=== PATIENT | female | born 1975 | race Two or more races ===

== ENCOUNTER 2022-02-12 15:40 | Inpatient (IN) | payer OTHER, MEDICAID ==
[~2022-02-12] VITALS: Ht 162.6 cm; Wt 118.9 kg
[2022-02-12] MEDS ORDERED: cloNIDine HCL 0.1 MG TAB PO ONE (16:15)
[2022-02-12] MEDS ORDERED: ASPirin 81 mg TAB PO ONE (16:15)
[2022-02-12 16:38] LABS: Urine Bacteria NONE SEEN /hpf (None Seen); Urine Blood 1+ /uL (Negative); Urine Specific Gravity 1.019 (1.001-1.035); Urine WBC 3 /hpf (0 - 5)
[2022-02-12 18:06] LABS: Hemoglobin 13.5 g/dL (12.2-16.2); Mean Corpuscular Hemoglobin 27.1 pg (28.0-32.0); Mean Corpuscular Volume 82.1 fL (80.0-100.0); Red Blood Cells 4.99 10^6/uL (4.0-5.20); Red Cell Distribution Width 14.9 % (11.8-14.3); White Blood Cell 10.3 10^3/uL (4.4-10.8)
[2022-02-12 18:07] LABS: Basophils % (manual) 0 (0.0-2.0); Blast Cells 0; Metamyelocytes % 0; Myelocytes % 0; Promyelocytes % 0; Reactive Lymphocytes 0
[2022-02-12 18:21] LABS: Albumin 3.6 g/dL (3.4-5.0); BUN/Creatinine Ratio 15.4; Calcium 8.9 mg/dL (8.5-10.1); Magnesium 2.4 mg/dL (1.6-2.6); Potassium 3.8 mmol/L (3.5-5.1)
[2022-02-12 18:24] LABS: Bilirubin, Total 0.3 mg/dL (0.2-1.0); Total Protein 6.8 g/dL (6.4-8.2)
[2022-02-12 18:26] LABS: Band Neutrophils % (manual) 8; Eosinophils % (manual) 12 (0-7); Lymphocytes % (manual) 24 (10.0-50.0); Monocytes % (manual) 3 (0-12)
[2022-02-12] MEDS ORDERED: HYDROcodone-ACET 5/325MG TAB PO PRN (22:00)
[2022-02-12] MEDS ORDERED: DOCUSATE SOD 100 MG CAP PO PRN (22:00)
[2022-02-12] MEDS ORDERED: ONDANSETRON HCL 4 MG/2 ML VIAL IV PRN (22:00)
[2022-02-12] MEDS ORDERED: MORPHINE SULFATE INJ 2 MG/ml SYRG IV PRN ×2 (22:00)
[2022-02-12] MEDS ORDERED: NITROGLYCERIN 0.4 MG SL TAB SL PRN (22:00)
[2022-02-12] MEDS ORDERED: ACETAMINOPHEN 325 MG TAB PO PRN (22:00)
[2022-02-12] MEDS: amLODIPine BESYLATE 5 MG TAB PO SCH ×2 (23:30→23:33)
[2022-02-12] MEDS: METOPROLOL TARTRATE 25 MG TAB PO SCH ×2 (23:31→23:33)
[2022-02-13] MEDS: METOPROLOL TARTRATE 25 MG TAB PO SCH ×2 (10:00→21:32)
[2022-02-13] MEDS: amLODIPine BESYLATE 5 MG TAB PO SCH (10:30)
[2022-02-13] MEDS ORDERED: guaiFENesin-DM 100/10mg/5ml SYR PO PRN (11:45)
[2022-02-13 22:00] VITALS: BP 164/96
[2022-02-14 06:57] LABS: Cholesterol 146 mg/dL (< 200)
[2022-02-14 07:00] LABS: HDL Cholesterol 22 mg/dL (40-59); LDL Cholesterol 58 mg/dL (< 100); Triglycerides 130 mg/dL (< 150)
[2022-02-14] MEDS ORDERED: ADENOSINE 63 MG in GIVE UN-DILUTED 0 ML IV ONE (07:45)
[2022-02-14 09:00] VITALS: BP 131/69
[2022-02-14] MEDS: ASPirin 81 mg TAB PO SCH (10:12)
[2022-02-14] MEDS: METOPROLOL TARTRATE 25 MG TAB PO SCH ×2 (10:14→21:16)
[2022-02-14] MEDS: amLODIPine BESYLATE 5 MG TAB PO SCH (10:15)
[2022-02-14] MEDS ORDERED: AMLO-496 PO (11:31)
[2022-02-14] MEDS ORDERED: METO25TA36 PO (11:31)
[2022-02-14 13:00] VITALS: BP 126/67
[2022-02-14 17:00] VITALS: BP 150/81
[2022-02-14 22:00] VITALS: BP 143/91
[2022-02-15 05:00] VITALS: BP 145/82
[2022-02-15] MEDS: ASPirin 81 mg TAB PO SCH (08:14)
[2022-02-15] MEDS: amLODIPine BESYLATE 5 MG TAB PO SCH (08:15)
[2022-02-15] MEDS: METOPROLOL TARTRATE 25 MG TAB PO SCH ×2 (08:15→22:04)
[2022-02-15 08:45] VITALS: BP 145/73
[2022-02-15 13:00] VITALS: BP 144/73
[2022-02-15 17:03] VITALS: BP 133/67
[2022-02-16] VITALS (7 sets, daily range): BP systolic 138–156; BP diastolic 75–89
[2022-02-16 08:19] LABS: BUN/Creatinine Ratio 13.6; Calcium 8.7 mg/dL (8.5-10.1); Potassium 3.9 mmol/L (3.5-5.1)
[2022-02-16 08:22] LABS: Basophils # (auto) 0 10 ^3/uL (0-0.2); Basophils % (auto) 0.4 % (0.0-2.0); Eosinophils # (auto) 0.4 10 ^3/uL (0-0.8); Hematocrit 40.5 % (36.0-46.0); Hemoglobin 13.3 g/dL (12.2-16.2); Lymphocytes # (auto) 2.3 10 ^3/uL (0.4-5.4); Lymphocytes % (auto) 22.4 % (10.0-50.0); Mean Corpuscular Hemoglobin 27.1 pg (28.0-32.0); Mean Corpuscular Hgb Conc. 32.9 g/dL (32.0-36.0); Mean Corpuscular Volume 82.4 fL (80.0-100.0); Monocytes # (auto) 0.7 10 ^3/uL (0-1.3); Monocytes % (auto) 6.8 % (0.0-12.0); Neutrophils # (auto) 6.9 10 ^3/uL (1.6-8.6); Neutrophils % (auto) 66.4 % (37.0-80.0); Red Blood Cells 4.92 10^6/uL (4.0-5.20); Red Cell Distribution Width 14.8 % (11.8-14.3); White Blood Cell 10.4 10^3/uL (4.4-10.8)
[2022-02-16 08:28] LABS: INR 0.97 (0.9-1.15); Partial Thromboplastin Time 27.8 sec (24.6-33.4)
[2022-02-16] MEDS: ASPirin 81 mg TAB PO SCH (08:52)
[2022-02-16] MEDS: amLODIPine BESYLATE 5 MG TAB PO SCH (08:53)
[2022-02-16] MEDS: METOPROLOL TARTRATE 25 MG TAB PO SCH (08:53)
[2022-02-16] MEDS ORDERED: IODIXANOL 320MG/ML 100ML BTL IV ONE (10:46)
[2022-02-16] MEDS ORDERED: LIDOCAINE 2%HCL (LOCAL ANESTH.) INJ 10ml MDV ONE (10:46)
[2022-02-16] MEDS ORDERED: fentaNYL CITRATE 100 MCG/2 ML VL ONE (10:48)
[2022-02-16] MEDS ORDERED: VERAPAMIL 2.5MG/ML INJ 2ML VIAL IV ONE (10:48)
[2022-02-16] MEDS ORDERED: ANGIOMAX 250 MG VIAL IV ONE (10:48)
[2022-02-16] MEDS ORDERED: HEPARIN SODIUM (PORCINE) 5000 UNITS/ML 1ML VIAL ONE (10:48)
[2022-02-16] MEDS ORDERED: MIDAZOLAM HCL 2MG/2ML 2ml VIAL (1mg/ml) ONE (10:48)
[2022-02-16] MEDS ORDERED: SODIUM CHL 0.9% 0 ML ONE (10:49)
== END 2022-02-16 16:15 | disposition home or self-care (01) | DRG 281 ==
LOC: ER 15:40 → TELE 22:02 → TELE-WESTW 02-13 22:29
PROVIDERS: ADMIT Internal Medicine; ATTEND Nurse Practitioner Acute Care
PROC: 4A023N7 Measurement of Cardiac Sampling and Pressure, Left Heart, Percutaneous Approach (ICD-10-PCS; principal; 2022-02-16)
PROC: B211YZZ Fluoroscopy of Multiple Coronary Arteries using Other Contrast (ICD-10-PCS; 2022-02-16)
PROC: B215YZZ Fluoroscopy of Left Heart using Other Contrast (ICD-10-PCS; 2022-02-16)
DX: I16.0 Hypertensive urgency (principal); I21.A1 Myocardial infarction type 2; N39.0 Urinary tract infection, site not specified; Z68.42 Body mass index [BMI] 45.0-49.9, adult; I25.10 Atherosclerotic heart disease of native coronary artery without angina pectoris; Z20.822 Contact with and (suspected) exposure to COVID-19; E66.9 Obesity, unspecified; I10 Essential (primary) hypertension; Z79.899 Other long term (current) drug therapy; Z91.14 Patient's other noncompliance with medication regimen; Z79.82 Long term (current) use of aspirin; Z80.9 Family history of malignant neoplasm, unspecified; Z82.49 Family history of ischemic heart disease and other diseases of the circulatory system; Z83.3 Family history of diabetes mellitus; Z90.49 Acquired absence of other specified parts of digestive tract
CPT/HCPCS: 36415; 71046; 78452; 80048; 80053; 80061; 81001; 83036; 83735; 84484; 84702; 85007; 85025; 85027; 85610; 85730; 86850; 86900; 86901; 87426; 93005; 93017; 93306; 93458; 99152; G0378; J0153; J2001; J2250; Q9967

== ENCOUNTER 2022-02-23 11:27 | Emergency (ER) | payer OTHER, MEDICAID ==
[~2022-02-23] VITALS: Ht 162.6 cm; Wt 12.2 kg
[~2022-02-23 11:27] MED LIST: AMLO-496 PO; METO25TA36 PO
[2022-02-23 13:03] VITALS: BP 143/80
[2022-02-23 15:45] LABS: Basophils # (auto) 0.1 10 ^3/uL (0-0.2); Basophils % (auto) 0.7 % (0.0-2.0); Eosinophils # (auto) 0.4 10 ^3/uL (0-0.8); Eosinophils % (auto) 3.4 % (0.0-7.0); Hematocrit 42.5 % (36.0-46.0); Lymphocytes # (auto) 2.4 10 ^3/uL (0.4-5.4); Lymphocytes % (auto) 21.3 % (10.0-50.0); Mean Corpuscular Hemoglobin 26.9 pg (28.0-32.0); Mean Corpuscular Volume 81.6 fL (80.0-100.0); Monocytes # (auto) 0.8 10 ^3/uL (0-1.3); Monocytes % (auto) 7.1 % (0.0-12.0); Neutrophils # (auto) 7.7 10 ^3/uL (1.6-8.6); Neutrophils % (auto) 67.5 % (37.0-80.0); Nucleated Red Blood Cells % 0.3 %; Red Blood Cells 5.21 10^6/uL (4.0-5.20); Red Cell Distribution Width 14.9 % (11.8-14.3); White Blood Cell 11.4 10^3/uL (4.4-10.8)
[2022-02-23 15:57] LABS: INR 0.98 (0.9-1.15)
[2022-02-23 16:01] LABS: Potassium 3.7 mmol/L (3.5-5.1)
[2022-02-23 16:21] LABS: Albumin 3.8 g/dL (3.4-5.0); BUN/Creatinine Ratio 16.9; Bilirubin, Total 0.6 mg/dL (0.2-1.0); Calcium 8.8 mg/dL (8.5-10.1); Total Protein 7.4 g/dL (6.4-8.2)
== END 2022-02-23 18:08 | disposition home or self-care (01) ==
LOC: ER 11:27
DX: I70.90 Unspecified atherosclerosis (principal); I10 Essential (primary) hypertension; Z90.49 Acquired absence of other specified parts of digestive tract; Z98.890 Other specified postprocedural states; Z20.822 Contact with and (suspected) exposure to COVID-19
CPT/HCPCS: 36415; 80053; 85025; 85610; 87426; 93971

== ENCOUNTER 2023-08-31 12:40 | Inpatient (IN) | payer OTHER, MEDICAID ==
[~2023-08-31] VITALS: Ht 162.6 cm; Wt 122.9 kg
[~2023-08-31 12:40] MED LIST changes: -AMLO-496 PO; +AMLO1TAB23 PO
[2023-08-31 13:21] LABS: Urine Bacteria None Seen /hpf (None Seen)
[2023-08-31 13:29] LABS: Urine Blood TRACE /uL (Negative); Urine Clarity Turbid (Clear); Urine Color Yellow (Yellow); Urine Mucus FEW (None Seen); Urine Protein, UAD 1+ (Negative); Urine Specific Gravity 1.024 (1.001-1.035); Urine Urobilinogen Normal (Negative); Urine WBC 2 /hpf (0 - 5); Urine pH 5.5 (5.0-9.0)
[2023-08-31] MEDS: SODIUM CHLORIDE 0.9% 1,000 ML IV ONE (13:43)
[2023-08-31 13:47] VITALS: PULSE 66; RESP 14; O2SAT 98
[2023-08-31 13:49] LABS: Basophils # (auto) 0.1 10 ^3/uL (0-0.2); Basophils % (auto) 0.6 % (0.0-2.0); Eosinophils # (auto) 0.3 10 ^3/uL (0-0.8); Eosinophils % (auto) 2.4 % (0.0-7.0); Hemoglobin 13.9 g/dL (12.2-16.2); Lymphocytes # (auto) 2.1 10 ^3/uL (0.4-5.4); Lymphocytes % (auto) 16.1 % (10.0-50.0); Mean Corpuscular Hgb Conc. 33.8 g/dL (32.0-36.0); Mean Corpuscular Volume 82.7 fL (80.0-100.0); Monocytes # (auto) 0.6 10 ^3/uL (0-1.3); Monocytes % (auto) 4.9 % (0.0-12.0); Neutrophils # (auto) 9.9 10 ^3/uL (1.6-8.6); Red Blood Cells 4.96 10^6/uL (4.0-5.20); Red Cell Distribution Width 15.2 % (11.8-14.3); White Blood Cell 13.1 10^3/uL (4.4-10.8)
[2023-08-31 14:03] LABS: Chloride 102 mmol/L (98-107); Potassium 3.7 mmol/L (3.5-5.1); Sodium 138 mmol/L (136-145)
[2023-08-31 14:05] LABS: Anion Gap 7 (5-15); Calcium 9.8 mg/dL (8.7-10.4); Carbon Dioxide 29 mmol/L (20-30)
[2023-08-31 14:10] LABS: BUN/Creatinine Ratio 10.6 (10.0-20.0); Blood Urea Nitrogen 9 mg/dL (9-23); Glucose 207 mg/dL (74-106)
[2023-08-31] MEDS ORDERED: ONDANSETRON HCL 4 MG/2 ML VIAL IV PRN (19:00)
[2023-08-31] MEDS ORDERED: ACETAMINOPHEN 325 MG TAB PO PRN (19:00)
[2023-08-31] MEDS ORDERED: DEXTROSE (50%) 50ML SYRG IV PRN (19:00)
[2023-08-31] MEDS ORDERED: HYDROmorphone HCL 2 MG/ML VL/or syr IV PRN (19:00)
[2023-08-31] MEDS ORDERED: HYDROcodone-ACET 5/325MG TAB PO PRN (19:00)
[2023-08-31 20:13] VITALS: PULSE 59; RESP 16; O2SAT 97
[2023-08-31] MEDS: LACTATED RINGER'S 1,000 ML IV ONE (20:13)
[2023-08-31] MEDS: ASPirin 81 mg TAB PO ONE (20:13)
[2023-08-31] MEDS: amLODIPine BESYLATE 5 MG TAB PO SCH (20:35)
[2023-08-31] MEDS: hydrALAZINE HCL 20 MG/ML VL IV PRN (21:33)
[2023-08-31] MEDS: ACCU-CHEK COMFORT CURVE STRIP VI SCH (21:59)
[2023-08-31] MEDS: InsuLIN REG 1unit/0.01ml Soln (100units/ml) SC SCH (22:05)
[2023-08-31] MEDS: SODIUM CHLOR 0.9% PF (SALINE LOCK) 10ML VIAL/SYR IV SCH (22:06)
[2023-08-31 23:03] VITALS: PULSE 79
[2023-08-31 23:29] VITALS: BP 172/91; PULSE 79; RESP 20; TEMP 97.5; O2SAT 97
[2023-08-31] MEDS ORDERED: METF-370 PO (23:29)
[2023-08-31] MEDS ORDERED: ASPI-543 PO (23:29)
[2023-09-01] VITALS (8 sets, daily range): BP systolic 124–157; BP diastolic 65–86; PULSE 55–77; RESP 18–20; TEMP 97.6–98.2; O2SAT 94–97
[2023-09-01] MEDS ORDERED: amLODIPine BESYLATE 5 MG TAB PO SCH (10:00)
[2023-09-01] MEDS: ASPirin 81 mg TAB PO ONE (10:11)
[2023-09-01] MEDS: METOPROLOL SUCCINATE XL 50 MG TAB PO SCH (10:12)
[2023-09-01] MEDS: ENOXAPARIN SOD 40 MG/0.4 ML SYRINGE SC SCH (10:12)
[2023-09-01 11:34] LABS: Triglycerides 157 mg/dL (< 150)
[2023-09-01 11:35] LABS: LDL Cholesterol 119 mg/dL (< 100)
[2023-09-01 11:36] LABS: HDL Cholesterol 43 mg/dL (40-59)
[2023-09-01 11:37] LABS: Cholesterol 172 mg/dL (< 200)
[2023-09-01] MEDS: ATORVASTATIN 20 MG TAB PO SCH (21:46)
[2023-09-02] VITALS (8 sets, daily range): BP systolic 127–160; BP diastolic 77–91; PULSE 55–74; RESP 17–20; TEMP 97.4–98.4; O2SAT 96–98
[2023-09-02 07:32] LABS: Anion Gap 7 (5-15); Carbon Dioxide 26 mmol/L (20-30); Chloride 104 mmol/L (98-107); Potassium 3.4 mmol/L (3.5-5.1); Sodium 137 mmol/L (136-145)
[2023-09-02 07:38] LABS: BUN/Creatinine Ratio 12.5 (10.0-20.0); Basophils # (auto) 0.1 10 ^3/uL (0-0.2); Basophils % (auto) 0.7 % (0.0-2.0); Blood Urea Nitrogen 10 mg/dL (9-23); Eosinophils # (auto) 0.5 10 ^3/uL (0-0.8); Eosinophils % (auto) 4.2 % (0.0-7.0); Glucose 134 mg/dL (74-106); Hematocrit 36.7 % (36.0-46.0); Hemoglobin 12.2 g/dL (12.2-16.2); Lymphocytes # (auto) 2.4 10 ^3/uL (0.4-5.4); Lymphocytes % (auto) 20.4 % (10.0-50.0); Mean Corpuscular Hemoglobin 27.6 pg (28.0-32.0); Mean Corpuscular Hgb Conc. 33.2 g/dL (32.0-36.0); Mean Corpuscular Volume 83.2 fL (80.0-100.0); Monocytes # (auto) 0.9 10 ^3/uL (0-1.3); Monocytes % (auto) 7.6 % (0.0-12.0); Neutrophils # (auto) 7.7 10 ^3/uL (1.6-8.6); Neutrophils % (auto) 67.1 % (37.0-80.0); Red Blood Cells 4.41 10^6/uL (4.0-5.20); Red Cell Distribution Width 15.2 % (11.8-14.3); White Blood Cell 11.5 10^3/uL (4.4-10.8)
[2023-09-02] MEDS: ASPirin 81 mg TAB PO SCH (10:17)
[2023-09-02] MEDS: POTASSIUM CHL 20 Meq TABLET PO ONE (15:08)
[2023-09-03 01:00] VITALS: BP 155/83; PULSE 63; RESP 20; TEMP 97.8; O2SAT 97
[2023-09-03 05:00] VITALS: BP 143/82; PULSE 61; RESP 18; TEMP 98.3; O2SAT 96
[2023-09-03 07:34] LABS: Basophils # (auto) 0.1 10 ^3/uL (0-0.2); Basophils % (auto) 0.5 % (0.0-2.0); Eosinophils # (auto) 0.5 10 ^3/uL (0-0.8); Eosinophils % (auto) 3.4 % (0.0-7.0); Hematocrit 38.6 % (36.0-46.0); Hemoglobin 12.8 g/dL (12.2-16.2); Lymphocytes # (auto) 2.4 10 ^3/uL (0.4-5.4); Mean Corpuscular Hemoglobin 27.5 pg (28.0-32.0); Mean Corpuscular Hgb Conc. 33.1 g/dL (32.0-36.0); Monocytes # (auto) 0.9 10 ^3/uL (0-1.3); Monocytes % (auto) 7.1 % (0.0-12.0); Neutrophils # (auto) 9.4 10 ^3/uL (1.6-8.6); Nucleated Red Blood Cells % 0.1 %; Red Blood Cells 4.65 10^6/uL (4.0-5.20); Red Cell Distribution Width 15.4 % (11.8-14.3); White Blood Cell 13.2 10^3/uL (4.4-10.8)
[2023-09-03 07:37] LABS: Anion Gap 5 (5-15); Calcium 9.5 mg/dL (8.7-10.4); Carbon Dioxide 29 mmol/L (20-30); Chloride 104 mmol/L (98-107); Potassium 3.7 mmol/L (3.5-5.1); Sodium 138 mmol/L (136-145)
[2023-09-03 07:43] LABS: Blood Urea Nitrogen 8 mg/dL (9-23); Glucose 136 mg/dL (74-106)
[2023-09-03 08:00] VITALS: PULSE 55; PULSE 65; RESP 18; O2SAT 96
[2023-09-03 08:40] VITALS: BP 138/73; PULSE 65; RESP 18; TEMP 98; O2SAT 96
[2023-09-03 12:42] VITALS: BP 157/89; PULSE 59; RESP 17; TEMP 97.6; O2SAT 98
[2023-09-03 12:44] VITALS: BP 157/89; PULSE 59; RESP 17; TEMP 97.6; O2SAT 98
== END 2023-09-03 14:38 | disposition home or self-care (01) | DRG 312 ==
LOC: ER 12:49 → TELE 18:53 → TELE-WESTW 23:00
PROVIDERS: ADMIT Internal Medicine Geriatric Medicine; ATTEND Emergency Medicine
DX: I95.1 Orthostatic hypotension (principal); Z68.42 Body mass index [BMI] 45.0-49.9, adult; I10 Essential (primary) hypertension; E78.5 Hyperlipidemia, unspecified; E66.9 Obesity, unspecified; I25.10 Atherosclerotic heart disease of native coronary artery without angina pectoris; E11.65 Type 2 diabetes mellitus with hyperglycemia; Z90.49 Acquired absence of other specified parts of digestive tract; Z83.3 Family history of diabetes mellitus; Z95.0 Presence of cardiac pacemaker; Z80.41 Family history of malignant neoplasm of ovary; Z82.49 Family history of ischemic heart disease and other diseases of the circulatory system; Z82.41 Family history of sudden cardiac death
CPT/HCPCS: 36415; 70450; 70551; 80048; 80061; 81001; 82962; 83036; 84484; 84702; 85025; 93005; 93306; 93886; G0378; J1815

== ENCOUNTER 2023-10-21 21:05 | Emergency (ER) | payer OTHER, MEDICAID ==
[~2023-10-21] VITALS: Ht 162.6 cm; Wt 119.8 kg
[~2023-10-21 21:05] MED LIST changes: +ASPI-543 PO; +METF-370 PO
[2023-10-21 21:35] VITALS: BP 201/106; PULSE 89; RESP 16; O2SAT 96
[2023-10-21] MEDS: cloNIDine HCL 0.1 MG TAB PO ONE (21:41)
== END 2023-10-22 01:47 | disposition home or self-care (01) ==
LOC: ER 21:05
DX: S67.02XA Crushing injury of left thumb, initial encounter (principal); S67.191A Crushing injury of left index finger, initial encounter; X58.XXXA Exposure to other specified factors, initial encounter; Y93.89 Activity, other specified; Y92.89 Other specified places as the place of occurrence of the external cause; Y99.8 Other external cause status; Z79.84 Long term (current) use of oral hypoglycemic drugs; Z79.899 Other long term (current) drug therapy